=== PATIENT | male | born 1940 ===

== ENCOUNTER 2021-07-20 08:35 | Observation (INO) ==
[2021-07-20] MEDS ORDERED: THIAMINE INJ 100 MG, FOLIC ACID INJ 1 MG, MAGNESIUM SULF INJ 2 GM, MULTIVITAMIN INJ 10 ... IV ONE (09:09)
[2021-07-20] MEDS ORDERED: THIAMINE 200 MG/2 ML VIAL IV STA (09:09)
[2021-07-20 09:57] LABS: Alanine Aminotransferase 29 U/L (16-61); Albumin 3.4 G/DL (3.4-5.0); Alkaline Phosphatase 79 U/L (45-117); Aspartate Amino Transferase 34 U/L (0-37); Bilirubin,Total < 0.39 MG/DL (0.20-1.00); Blood Urea Nitrogen 12 MG/DL (7-18); Calcium 9.1 MG/DL (8.5-10.1); Carbon Dioxide 27 MMOL/L (21-32); Estimated Glom Filtration Rate 82 ML/MIN; Glucose 104 MG/DL (74-106); Osmolality,Calculated 272.8 MOS/KG (273-304); Potassium 4.6 MMOL/L (3.5-5.1); Sodium 137 MMOL/L (136-145)
[2021-07-20 10:14] LABS: Basophils % 0.2 % (0.0-0.8); Eosinophils % 0.5 % (0.00-10.9); Hematocrit 37.1 VOL% (42.0-52.0); Hemoglobin 11.8 GM/DL (14.0-18.0); Immature Granulocytes % 1.2 %; Lymphocytes # 0.4 10*3/uL (1.4-4.0); Lymphocytes % 4.9 % (21.2-54.2); Mean Corpuscular HGB Conc 31.8 GM/DL (32-36); Mean Corpuscular Volume 85.3 FL (87-102); Mean Platelet Volume 9.8 FL (9.6-12.0); Monocytes % 13.8 % (1.7-12.7); Neutrophils % 79.4 % (38.7-73.9); Platelet Count 221 T/CUMM (130-400); Red Blood Count 4.35 MC/CUMM (3.8-5.5); Red Cell Distribution Width 15.9 % (9.3-17.3); White Blood Count 8.3 T/CUMM (4-12)
[2021-07-20 10:47] LABS: Bilirubin,Urine Negative (Negative); Blood, Urine Small mg/dL (Negative); Glucose,Urine (UA) Negative (Negative); Ketones,Urine Negative (Negative); Mucus,Urine Occasional /LPF (Occasional); Nitrite,Urine Negative (Negative); Protein,Urine Negative; RBC,Urine 3 /HPF (0-4); Urine Appearance CLEAR (Clear); Urine Color Yellow (Yellow); Urine Specific Gravity 1.013 (1.001-1.035); Urine Urobilinogen < 2.0 EU/DL (<2.0)
[2021-07-20 10:56] LABS: Band Neutrophils 4 % (0-10); Hypochromia 1+; Lymphocytes 4 % (20-55); Microcytosis 1+; Myelocytes 1 %; Ovalocytes Slight; Segmented Neutrophils 79 % (50-85); Total Cells Counted 100
[2021-07-20 11:03] LABS: Barbiturates Screen,Urine Negative (Negative); Benzodiazepines Screen,Urine Positive (Negative); Cannabinoid Screen,Urine Positive (Negative); Opiate Screen,Urine Negative (Negative); Phencyclidine Screen,Urine Negative (Negative)
[2021-07-20] MEDS ORDERED: ONDANSETRON 4 MG/2 ML VIAL IV PRN (12:37)
[2021-07-20] MEDS ORDERED: DOCUSATE SODIUM 100 MG CAPSULE PO PRN (12:37)
[2021-07-20] MEDS ORDERED: ALBUTEROL 2.5 MG/3 ML NEB RESP TX PRN (12:37)
[2021-07-20] MEDS ORDERED: hydrALAZINE 20 MG/1 ML VIAL IV PRN (12:37)
[2021-07-20] MEDS ORDERED: ACETAMINOPHEN 325 MG TABLET PO PRN (12:37)
[2021-07-20] MEDS ORDERED: GLUCAGON 1 MG VIAL IM PRN (12:37)
[2021-07-20] MEDS ORDERED: LORazepam 2 MG/1 ML VIAL IV PRN (12:40)
[2021-07-20] MEDS ORDERED: DEXTROSE 10% 250 ML BAG IV PRN (12:47)
[2021-07-20 13:04] LABS: Risk Ratio 3.39; Thyroid Stimulating Hormone 0.739 uIU/ml (0.358-3.74)
[2021-07-20 13:20] LABS: Folate 12.87 NG/ML (5.38-24.0)
[2021-07-20] MEDS: ENOXAPARIN 40 MG/0.4 ML SYRINGE SUBCUT SCH (15:53)
[2021-07-21 05:25] LABS: Basophils % 0.3 % (0.0-0.8); Eosinophils # 0.1 10*3/uL (0.0-0.87); Eosinophils % 1.1 % (0.00-10.9); Hemoglobin 10.5 GM/DL (14.0-18.0); Immature Granulocytes % 0.5 %; Immature Granulocytes Absolute 0.04 #; Lymphocytes # 0.8 10*3/uL (1.4-4.0); Mean Corpuscular HGB Conc 31.8 GM/DL (32-36); Mean Corpuscular Volume 84.8 FL (87-102); Mean Platelet Volume 10.2 FL (9.6-12.0); Monocytes % 19.8 % (1.7-12.7); Neutrophils % 67.3 % (38.7-73.9); Platelet Count 343 T/CUMM (130-400); Red Blood Count 3.89 MC/CUMM (3.8-5.5); Red Cell Distribution Width 16.1 % (9.3-17.3); White Blood Count 7.5 T/CUMM (4-12)
[2021-07-21 05:51] LABS: Band Neutrophils 2 % (0-10); Hypochromia 1+; Lymphocytes 12 % (20-55); Microcytosis 1+; Platelet Estimate Adequate; Segmented Neutrophils 71 % (50-85); Total Cells Counted 100
[2021-07-21 06:03] LABS: Albumin 2.8 G/DL (3.4-5.0); Bilirubin,Total 0.4 MG/DL (0.20-1.00); Calcium 8.5 MG/DL (8.5-10.1); Osmolality,Calculated 280.4 MOS/KG (273-304); Potassium 3.1 MMOL/L (3.5-5.1); Total Protein 7.3 G/DL (6.4-8.2)
[2021-07-21] MEDS ORDERED: POTASSIUM CHLORIDE 20 MEQ TABLET PO ONE (07:46)
[2021-07-21] MEDS: MULTIVITAMIN (CENTRUM) TABLET PO SCH (08:48)
[2021-07-21] MEDS: FOLIC ACID 1 MG TABLET PO SCH (08:48)
[2021-07-21] MEDS: PANTOPRAZOLE 40 MG TABLET PO SCH (08:49)
[2021-07-21] MEDS: THIAMINE 100 MG TABLET PO SCH (08:49)
[2021-07-21] MEDS: chlordiazePOXIDE 25 MG CAPSULE PO SCH ×3 (11:59→21:33)
[2021-07-21] MEDS: ENOXAPARIN 40 MG/0.4 ML SYRINGE SUBCUT SCH (13:51)
[2021-07-21] MEDS: levETIRAcetam 500 MG TABLET PO SCH (21:33)
[2021-07-22 05:22] LABS: Basophils % 0.6 % (0.0-0.8); Eosinophils # 0.2 10*3/uL (0.0-0.87); Eosinophils % 2.6 % (0.00-10.9); Hematocrit 34.3 VOL% (42.0-52.0); Hemoglobin 10.9 GM/DL (14.0-18.0); Immature Granulocytes % 0.6 %; Immature Granulocytes Absolute 0.04 #; Lymphocytes # 0.8 10*3/uL (1.4-4.0); Mean Corpuscular HGB Conc 31.8 GM/DL (32-36); Mean Platelet Volume 9.9 FL (9.6-12.0); Monocytes % 27.3 % (1.7-12.7); Neutrophils % 56.9 % (38.7-73.9); Platelet Count 343 T/CUMM (130-400); Red Blood Count 3.99 MC/CUMM (3.8-5.5); Red Cell Distribution Width 16.3 % (9.3-17.3); White Blood Count 6.6 T/CUMM (4-12)
[2021-07-22 05:35] LABS: Calcium 8.4 MG/DL (8.5-10.1); Osmolality,Calculated 278.3 MOS/KG (273-304); Potassium 3.5 MMOL/L (3.5-5.1)
[2021-07-22 05:36] LABS: Calcium 8.6 MG/DL (8.5-10.1); Osmolality,Calculated 280.1 MOS/KG (273-304); Potassium 3.5 MMOL/L (3.5-5.1)
[2021-07-22 05:40] LABS: % Iron Saturation 8.9 % (18-50); Ferritin 31.9 ng/mL (26-388)
[2021-07-22 06:04] LABS: Eosinophils 6 % (0-10); Hypochromia 1+; Lymphocytes 14 % (20-55); Microcytosis 1+; Platelet Estimate Adequate; Segmented Neutrophils 56 % (50-85); Total Cells Counted 100
[2021-07-22] MEDS: levETIRAcetam 500 MG TABLET PO SCH (08:47)
[2021-07-22] MEDS: FOLIC ACID 1 MG TABLET PO SCH (08:47)
[2021-07-22] MEDS: PANTOPRAZOLE 40 MG TABLET PO SCH (08:47)
[2021-07-22] MEDS: THIAMINE 100 MG TABLET PO SCH (08:48)
[2021-07-22] MEDS: MULTIVITAMIN (CENTRUM) TABLET PO SCH (08:48)
[2021-07-22] MEDS: chlordiazePOXIDE 25 MG CAPSULE PO SCH (10:18)
[2021-07-22 10:31] VITALS: BP 130/72
== END 2021-07-22 10:17 | disposition home or self-care (01) ==
LOC: N.ED 08:35 → INTOOBSV 12:38 → N.EDINP 12:38 → SUATTDRO 12:38 → N.TELEN 18:35
PROVIDERS: ADMIT Internal Medicine; ATTEND Hospitalist

== ENCOUNTER 2022-07-22 09:02 | Observation (INO) ==
[2022-07-22] MEDS ORDERED: SODIUM CHLORIDE 0.9% 500 ML IV STA (09:38)
[2022-07-22] MEDS ORDERED: ONDANSETRON 4 MG/2 ML VIAL IV STA (09:38)
[2022-07-22 10:15] LABS: Basophils % 0.2 % (0.0-0.8); Eosinophils % 0.3 % (0.00-10.9); Hematocrit 23.2 VOL% (42.0-52.0); Immature Granulocytes % 0.7 %; Immature Granulocytes Absolute 0.06 #; Lymphocytes # 0.7 10*3/uL (1.4-4.0); Lymphocytes % 7.2 % (21.2-54.2); Mean Corpuscular HGB Conc 30.2 GM/DL (32-36); Mean Corpuscular Volume 85.9 FL (87-102); Mean Platelet Volume 9.7 FL (9.6-12.0); Monocytes # 1.5 10*3/uL (0.11-0.8); Monocytes % 16.2 % (1.7-12.7); NRBC # 0.02 10*3/uL; Neutrophils % 75.4 % (38.7-73.9); Platelet Count 412 T/CUMM (130-400); Red Cell Distribution Width 17.7 % (9.3-17.3); White Blood Count 9.1 T/CUMM (4-12)
[2022-07-22 10:34] LABS: Alanine Aminotransferase 22 U/L (16-61); Alkaline Phosphatase 68 U/L (45-117); Aspartate Amino Transferase 21 U/L (0-37); Band Neutrophils 2 % (0-10); Bilirubin,Total < 0.39 MG/DL (0.20-1.00); Blood Urea Nitrogen 17 MG/DL (7-18); Calcium 8.3 MG/DL (8.5-10.1); Carbon Dioxide 30 MMOL/L (21-32); Chloride 110 MMOL/L (98-107); Glucose 140 MG/DL (74-106); Lymphocytes 8 % (20-55); Potassium 3.1 MMOL/L (3.5-5.1); Sodium 143 MMOL/L (136-145); Total Cells Counted 100
[2022-07-22 10:35] LABS: Platelet Estimate Adequate
[2022-07-22 10:36] LABS: Hypochromia Slight; Microcytosis Slight
[2022-07-22 10:49] LABS: % Iron Saturation 9.7 % (18-50); Ferritin 9.3 ng/mL (26-388)
[2022-07-22 10:58] LABS: Hyaline Casts,Urine 4 /LPF (0-3); Mucus,Urine Occasional /LPF (Occasional); RBC,Urine 2 /HPF (0-4); Squamous Epithelial Cell,Urine Occasional /HPF (0-10)
[2022-07-22 10:59] LABS: Urine Color Yellow (Yellow)
[2022-07-22 11:00] LABS: Bilirubin,Urine Negative (Negative); Blood, Urine Negative (Negative); Glucose,Urine (UA) Negative (Negative); Ketones,Urine Negative (Negative); Nitrite,Urine Negative (Negative); Protein,Urine Trace mg/dL (Negative); Urine Appearance Clear (Clear); Urine Specific Gravity 1.025 (1.001-1.035); Urine Urobilinogen 0.2 eU/dL (<2.0)
[2022-07-22 11:04] LABS: Folate > 24.00 NG/ML (5.38-24.0); Vitamin B12 477 PG/ML (211-911)
[2022-07-22] MEDS ORDERED: THIAMINE INJ 100 MG, FOLIC ACID INJ 1 MG, MAGNESIUM SULF INJ 2 GM, MULTIVITAMIN INJ 10 ... IV ONE (11:36)
[2022-07-22] MEDS ORDERED: SODIUM CHLORIDE 0.9% 1,000 ML IV PRN (13:31)
[2022-07-22] MEDS ORDERED: LORazepam 2 MG/1 ML VIAL IV PRN (13:32)
[2022-07-22] MEDS ORDERED: ACETAMINOPHEN 325 MG TABLET PO PRN (13:32)
[2022-07-22] MEDS ORDERED: ONDANSETRON 4 MG/2 ML VIAL IV PRN (13:32)
[2022-07-22 14:12] LABS: Barbiturates Screen,Urine Negative (Negative); Benzodiazepines Screen,Urine Negative (Negative); Cannabinoid Screen,Urine Positive (Negative); Opiate Screen,Urine Negative (Negative); Phencyclidine Screen,Urine Negative (Negative)
[2022-07-22] MEDS: THIAMINE 100 MG TABLET PO SCH (15:06)
[2022-07-22] MEDS: MULTIVITAMIN (CENTRUM) TABLET PO SCH (15:06)
[2022-07-22] MEDS: FOLIC ACID 1 MG TABLET PO SCH (15:06)
[2022-07-22 15:27] LABS: PT Patient Result 11.3 SECS (10.1-12.1)
[2022-07-22] MEDS: levETIRAcetam 500 MG TABLET PO SCH (20:59)
[2022-07-23] MEDS: SODIUM CHLORIDE 0.9% 1,000 ML IV SCH ×4 (02:59→21:50)
[2022-07-23 06:01] LABS: Basophils % 0.1 % (0.0-0.8); Eosinophils # 0.1 10*3/uL (0.0-0.87); Eosinophils % 0.8 % (0.00-10.9); Immature Granulocytes % 0.4 %; Immature Granulocytes Absolute 0.03 #; Lymphocytes # 0.7 10*3/uL (1.4-4.0); Lymphocytes % 8.8 % (21.2-54.2); Mean Corpuscular Volume 85.8 FL (87-102); Monocytes # 1.7 10*3/uL (0.11-0.8); Monocytes % 21.7 % (1.7-12.7); Neutrophils % 68.2 % (38.7-73.9); Platelet Count 322 T/CUMM (130-400); Red Blood Count 2.33 MC/CUMM (3.8-5.5); Red Cell Distribution Width 17.2 % (9.3-17.3); White Blood Count 7.6 T/CUMM (4-12)
[2022-07-23 06:14] LABS: Hemoglobin 6.4 GM/DL (14.0-18.0)
[2022-07-23 06:17] LABS: Alanine Aminotransferase 17 U/L (16-61); Albumin 2.6 G/DL (3.4-5.0); Alkaline Phosphatase 54 U/L (45-117); Aspartate Amino Transferase 16 U/L (0-37); Bilirubin,Total < 0.39 MG/DL (0.20-1.00); Blood Urea Nitrogen 10 MG/DL (7-18); Calcium 7.6 MG/DL (8.5-10.1); Carbon Dioxide 29 MMOL/L (21-32); Chloride 112 MMOL/L (98-107); Glucose 95 MG/DL (74-106); Osmolality,Calculated 286.7 MOS/KG (273-304); Potassium 2.7 MMOL/L (3.5-5.1); Sodium 145 MMOL/L (136-145); Total Protein 5.9 G/DL (6.4-8.2)
[2022-07-23 06:33] LABS: Hypochromia 1+; Lymphocytes 5 % (20-55); Microcytosis 1+; Platelet Estimate Adequate; Total Cells Counted 100
[2022-07-23] MEDS: POTASSIUM CHLORIDE 20 MEQ TABLET PO PRN (07:21)
[2022-07-23] MEDS ORDERED: SODIUM CHLORIDE 0.9% 1,000 ML IV PRN (08:03)
[2022-07-23] MEDS: POTASSIUM CHLORIDE RIDER 10 MEQ/100 ML PREMIX IV PRN ×5 (08:30→16:06)
[2022-07-23] MEDS: levETIRAcetam 500 MG TABLET PO SCH ×2 (08:53→20:54)
[2022-07-23] MEDS: PANTOPRAZOLE 40 MG VIAL IV SCH (08:58)
[2022-07-23] MEDS: MULTIVITAMIN (CENTRUM) TABLET PO SCH (09:41)
[2022-07-23] MEDS: FOLIC ACID 1 MG TABLET PO SCH (09:41)
[2022-07-23] MEDS: THIAMINE 100 MG TABLET PO SCH (09:42)
[2022-07-23] MEDS: LACTATED RINGERS 1,000 ML IV SCH (11:46)
[2022-07-23] MEDS ORDERED: propofoL 200 MG/20 ML VIAL IV ONE ×2 (12:02→12:12)
[2022-07-23] MEDS ORDERED: LIDOCAINE 2% 5 ML VIAL ONE (12:02)
[2022-07-23 15:32] LABS: Hematocrit 30.1 VOL% (42.0-52.0)
[2022-07-23] MEDS: FERRIC GLUCONATE COMPLEX 125 MG in SODIUM CHLORIDE 0.9% 100 ML IV SCH (15:50)
[2022-07-24] MEDS: SODIUM CHLORIDE 0.9% 1,000 ML IV SCH (05:46)
[2022-07-24 06:01] LABS: Basophils % 0.2 % (0.0-0.8); Eosinophils # 0.1 10*3/uL (0.0-0.87); Eosinophils % 1.1 % (0.00-10.9); Hematocrit 28.3 VOL% (42.0-52.0); Hemoglobin 9.2 GM/DL (14.0-18.0); Immature Granulocytes % 0.8 %; Immature Granulocytes Absolute 0.08 #; Lymphocytes # 0.6 10*3/uL (1.4-4.0); Lymphocytes % 6.4 % (21.2-54.2); Mean Corpuscular HGB Conc 32.5 GM/DL (32-36); Mean Corpuscular Volume 86.5 FL (87-102); Monocytes # 2.2 10*3/uL (0.11-0.8); Monocytes % 22.2 % (1.7-12.7); Neutrophils % 69.3 % (38.7-73.9); Platelet Count 318 T/CUMM (130-400); Red Blood Count 3.27 MC/CUMM (3.8-5.5); Red Cell Distribution Width 16.3 % (9.3-17.3)
[2022-07-24 06:03] LABS: Calcium 8.1 MG/DL (8.5-10.1); Osmolality,Calculated 279.3 MOS/KG (273-304); Potassium 3.1 MMOL/L (3.5-5.1)
[2022-07-24 07:21] LABS: Eosinophils 3 % (0-10); Hypochromia 1+; Lymphocytes 7 % (20-55); Platelet Estimate Normal; Total Cells Counted 100
[2022-07-24] MEDS: POTASSIUM CHLORIDE 20 MEQ TABLET PO PRN ×4 (08:43→14:42)
[2022-07-24] MEDS: levETIRAcetam 500 MG TABLET PO SCH ×2 (08:44→20:48)
[2022-07-24] MEDS: FOLIC ACID 1 MG TABLET PO SCH (08:44)
[2022-07-24] MEDS: PANTOPRAZOLE 40 MG VIAL IV SCH (08:44)
[2022-07-24] MEDS: THIAMINE 100 MG TABLET PO SCH (08:44)
[2022-07-24] MEDS: MULTIVITAMIN (CENTRUM) TABLET PO SCH (08:44)
[2022-07-24] MEDS: LACTATED RINGERS 1,000 ML IV SCH (09:13)
[2022-07-24] MEDS: FERRIC GLUCONATE COMPLEX 125 MG in SODIUM CHLORIDE 0.9% 100 ML IV SCH (09:46)
[2022-07-25 04:42] VITALS: BP 163/78
[2022-07-25 05:52] LABS: Basophils % 0.2 % (0.0-0.8); Eosinophils # 0.1 10*3/uL (0.0-0.87); Eosinophils % 0.7 % (0.00-10.9); Hematocrit 28.5 VOL% (42.0-52.0); Hemoglobin 9.2 GM/DL (14.0-18.0); Immature Granulocytes % 0.7 %; Immature Granulocytes Absolute 0.08 #; Lymphocytes # 0.7 10*3/uL (1.4-4.0); Mean Corpuscular HGB Conc 32.3 GM/DL (32-36); Mean Corpuscular Volume 87.4 FL (87-102); Mean Platelet Volume 9.8 FL (9.6-12.0); Monocytes # 2.8 10*3/uL (0.11-0.8); Monocytes % 24.5 % (1.7-12.7); Neutrophils % 67.9 % (38.7-73.9); Platelet Count 338 T/CUMM (130-400); Red Blood Count 3.26 MC/CUMM (3.8-5.5); Red Cell Distribution Width 16.7 % (9.3-17.3); White Blood Count 11.6 T/CUMM (4-12)
[2022-07-25 06:11] LABS: Calcium 8.9 MG/DL (8.5-10.1); Osmolality,Calculated 278.4 MOS/KG (273-304); Potassium 3.2 MMOL/L (3.5-5.1)
[2022-07-25 06:30] LABS: Hypochromia Slight; Lymphocytes 10 % (20-55); Platelet Estimate Normal; Total Cells Counted 100
[2022-07-25] MEDS ORDERED: POTASSIUM CHLORIDE 20 MEQ TABLET PO ONE (07:53)
[2022-07-25] MEDS: MULTIVITAMIN (CENTRUM) TABLET PO SCH (08:51)
[2022-07-25] MEDS: levETIRAcetam 500 MG TABLET PO SCH (08:52)
[2022-07-25] MEDS: FOLIC ACID 1 MG TABLET PO SCH (08:52)
[2022-07-25] MEDS: FERRIC GLUCONATE COMPLEX 125 MG in SODIUM CHLORIDE 0.9% 100 ML IV SCH (08:52)
[2022-07-25] MEDS: THIAMINE 100 MG TABLET PO SCH (08:52)
[2022-07-25] MEDS: LACTATED RINGERS 1,000 ML IV SCH (09:07)
[2022-07-25] MEDS: PANTOPRAZOLE 40 MG VIAL IV SCH ×2 (09:37→10:05)
== END 2022-07-25 11:15 | disposition home or self-care (01) ==
LOC: N.EDINP 09:02 → N.ED 09:02 → SUATTDRO 13:31 → N.3E 15:05
PROVIDERS: ADMIT Emergency Medicine; ATTEND Internal Medicine